=== PATIENT | male | born 1960 | race Caucasian/White ===

== ENCOUNTER 2017-09-29 18:21 | Emergency (ER) | payer BC ==
[~2017-09-29] VITALS: Ht 180.3 cm; Wt 88.0 kg
[2017-09-29 18:28] VITALS: Ht 180.3 cm; Wt 88.0 kg
[2017-09-29 20:47] VITALS: BP 168/78
== END 2017-09-29 20:47 | disposition home or self-care (01) ==
LOC: ED 18:21
DX: G44.209 Tension-type headache, unspecified, not intractable (principal)
CPT/HCPCS: J1885